=== PATIENT | female | born 1980 | race Caucasian/White ===

== ENCOUNTER → 2016-08-17 | Outpatient (REF) | payer OTHER ==
[~2016-08-17] MED LIST: /WARF5TA; ACET500T2 PO; ACET50TA PO; COUM7.5T PO; FERROUS SULFATE; HEPA500020 IP; INSURSDRX SC; LOVE0.4I2 SC; NICO21DI26 TOP; NOVOINJ5 SC; PREN27TA3 PO; VICO5TAB; VITA-113; VITAMIN C
== END ==
LOC: M LABDRWAD 19:59
PROVIDERS: ATTEND Obstetrics & Gynecology
DX: Z86.718 Personal history of other venous thrombosis and embolism (principal); O24.424 Gestational diabetes mellitus in childbirth, insulin controlled

== ENCOUNTER → 2016-09-16 | Outpatient (REF) | payer OTHER | LOC: M LAB REF 12:50 | PROVIDERS: ATTEND Obstetrics & Gynecology | DX: O24.424 Gestational diabetes mellitus in childbirth, insulin controlled (principal) ==

== ENCOUNTER → 2016-09-23 | Outpatient (CLI) | payer OTHER ==
--- NOTE | 2016-09-23 11:38 | REP ---
Clinical: Anatomical evaluation. Comparison: None . Findings: Examination demonstrates a single live intrauterine in breech presentation. motion is identified by technologist. Placenta is noted anterior fundally and grade Z without evidence for placenta previa or abruption. Amniotic fluid volume is normal. Cervix measures rectal 4.8 cm in length and appears closed. No evidence for nuchal cord. Gestational age by LMP 19 weeks 1 day with ANDREY 02/16/2017 . Gestational age by current measurements 20 weeks 2 days with ANDREY 02/08/2017 . FHR equals 141 beats per minute. BPD 4.5 cm 19 weeks 3 days HC 17.4 cm 20 weeks 0 days AC 16.4 cm 21 weeks 3 days FL 3.3 cm 20 weeks 2 days HL 3.2 cm 20 weeks 3 days HC/AC ratio 1.07 Estimated weight 374 grams (61st percentile). Anatomical assessment demonstrates normal structures including cranium, choroid plexus, cavum, cerebellum/posterior fossa, facial features, lungs, four-chamber heart/ventricular outflow tracts, diaphragm, stomach, cord insertion/three-vessel cord, bladder, and extremities. Limited evaluation of the facial profile, right cardiac ventricular outflow tract, kidneys and spine noted. Impression: Single live intrauterine in breech presentation demonstrating appropriate interval growth. Anatomical limitations as noted above may warrant reevaluation and follow-up. Signed by Scottie Raya MD 09/23/2016 11:30 A
== END ==
LOC: M RAD 09:29
PROVIDERS: ATTEND Obstetrics & Gynecology
DX: Z36 Encounter for antenatal screening of mother (principal)

== ENCOUNTER → 2016-10-06 | Outpatient (CLI) | payer OTHER ==
--- NOTE | 2016-10-06 14:42 | REP ---
OBSTETRIC SONOGRAPHY: HISTORY: Supervision of , followup anatomy. FINDINGS: Scanning through the gravid uterus demonstrates a viable single intrauterine gestation in a cephalic lie. motion is observed, and heart rate is recorded at 147 beats per minute. An anterior grade 0 placenta is seen without evidence of previa or abruption. Amniotic fluid is subjectively normal. The closed cervical length is 4.6 cm, viewed transabdominally. No extrauterine abnormality is observed. There has been appropriate interval growth. spine is still less than optimally seen due to position and maternal body habitus. The following additional anatomic structures are identified and felt to be unremarkable today: cranium, choroid plexus, cavum, face and profile, lungs, four-chamber heart with left and right ventricular outflow tract views, diaphragm, left-sided stomach, abdominal wall cord insertion, three-vessel umbilical cord, kidneys, upper and lower extremities. BIOMETRY CHART: BPD 5.2 cm = 21 week 6 days Head circumference 19.1 cm = 21 weeks 3 days Abdominal circumference 17.6 cm = 22 weeks 3 days Femur length 3.6 cm = 21 weeks 2 days Humeral length 3.5 cm = 22 weeks 1 day HC/AC ratio normal 1.09 Cephalic index normal 0.76 Estimated weight 459 grams, 1 pound 0 ounces, 47th percentile for 21 weeks 6 days. IMPRESSION: Viable single intrauterine gestation at 21 week 6 days by today's composite criteria. Expected gestational age estimate based on prior sonography is 21 week 6 days as well. ANDREY by prior sonography, February 10, 2017. spine is still less than optimally seen. Signed by Roman Perez MD 10/06/2016 04:43 P
== END ==
LOC: M RAD 12:20
PROVIDERS: ATTEND Specialist
DX: Z36 Encounter for antenatal screening of mother (principal)

== ENCOUNTER → 2016-10-27 | Outpatient (CLI) | payer OTHER ==
--- NOTE | 2016-10-27 11:38 | REP ---
OB ULTRASOUND: Real-time sonographic evaluation of the gravid uterus performed. There is a single living intrauterine gestation, estimated gestational age 24 weeks 6 days, EDC 02/10/2017. Today's measurements indicate somewhat greater than expected growth. BPD 62 mm 25 weeks 2 days, 58th percentile HC 232 mm 25 weeks 2 days, 59th percentile AC 235 mm 27 weeks 6 days, greater than 95th percentile FL 47 mm 25 weeks 5 days, 68th percentile HC/AC ratio 0.99 is below normal range of 1.02-1.21. Estimated weight 971 grams over 97th percentile. heart rate 147 beats per minute. Amniotic fluid within normal limits, amniotic fluid index (ABHAY) 19.8 within normal range of 9.7-22.1. Today the lateral ventricles, choroid plexus, stomach, kidneys, bladder and spine are visualized and are grossly unremarkable. position breech. Placenta anterior and grade 0 with no previa or abruption. Cervix is closed and measures 4.9 cm in length. IMPRESSION: Somewhat greater than expected growth, with abdominal circumference over 95th percentile and estimated weight over 97th percentile for the estimated gestational age. Followup recommended. Signed by Tao Cantrell MD 10/27/2016 03:30 P
== END ==
LOC: M RAD 10:04
PROVIDERS: ATTEND Specialist
DX: Z36 Encounter for antenatal screening of mother (principal)

== ENCOUNTER → 2016-12-18 | Outpatient (CLI) | payer OTHER ==
--- NOTE | 2016-12-18 14:30 | REP ---
OB ULTRASOUND AND BIOPHYSICAL PROFILE: Real-time sonographic evaluation of the gravid uterus is performed. There is a single living intrauterine gestation. The estimated gestational age is 32 weeks 1 day, EDC 02/11/2017. Today's measurements indicate appropriate growth. Biometry and Growth: BPD 81 mm = 32 weeks 4 days, 56th percentile HC 306 mm = 34 weeks 0 days, 79th percentile AC 301 mm = 34 weeks 0 days, 79th percentile FL 66 mm = 33 weeks 6 days, 76th percentile HC/AC ratio 1.02 within normal range. Estimated weight 2289 grams, 80th percentile. stomach and bladder are visualized and are grossly unremarkable. Cervical length: Closed and measures 4.4 cm in length heart rate: 130 beats per minute. position: Oblique with head toward the maternal right side. Placenta: Anterior and grade 0 with no previa or abruption. Amniotic fluid: Appears within normal limits, ABHAY 20.9 within the normal range of 8.6 to 24.2. Biophysical profile score is 8 out of 8. S/D ratio: 3.11 within normal range of 2.45 to 3.45. RI: 0.68 within normal range of 0.59 to 0.75. Signed by Tao Cantrell MD 12/18/2016 08:02 P
== END ==
LOC: M RAD 12:45
PROVIDERS: ATTEND Obstetrics & Gynecology
DX: O24.424 Gestational diabetes mellitus in childbirth, insulin controlled (principal); Z3A.32 32 weeks gestation of pregnancy

== ENCOUNTER 2017-01-10 06:36 | Inpatient (IN) | payer OTHER ==
[~2017-01-10] VITALS: Ht 157.5 cm; Wt 104.0 kg
[2017-01-10] VITALS (9 sets, daily range): BP systolic 105–148; BP diastolic 54–69
[2017-01-10 08:09] LABS: MEAN CORPUSCULAR HEMOGLOBIN 30.5 pg (27.0-33.0); MEAN CORPUSCULAR HGB CONC 35.4 g/dl (32.0-36.5); MEAN CORPUSCULAR VOLUME 86.2 fl (80.0-96.0); RED CELL DISTRIBUTION WIDTH 14.6 % (11.5-14.5); WHITE BLOOD COUNT 11.3 K/mm3 (4.0-10.0)
[2017-01-10 08:36] LABS: BILIRUBIN,TOTAL 0.4 MG/DL (0.2-1.0); CREATININE FOR GFR 0.38 MG/DL (0.55-1.02); GLOMERULAR FILTRATION RATE > 60.0 (>60); URIC ACID 4.8 MG/DL (2.6-6.0)
[2017-01-10 08:57] LABS: AST/SGOT 13 U/L (15-37)
[2017-01-10 08:59] LABS: ALT/SGPT 14 U/L (12-78)
[2017-01-10] MEDS ORDERED: INSURSD SC ×2 (10:30)
[2017-01-10] MEDS ORDERED: INSUNSD SC ×2 (10:30)
[2017-01-10] MEDS ORDERED: PRENTAB9 PO (10:30)
[2017-01-10] MEDS: HumaLOG INSULIN (NovoLOG) PER UNIT SC SCH ×2 (12:00→17:51)
[2017-01-10] MEDS ORDERED: LACTATED RINGER'S 1000 ML IV STA (12:11)
[2017-01-10] MEDS ORDERED: GLUCAGON FOR INJ 1 MG VIAL (J1610) SC PRN (12:15)
[2017-01-10] MEDS ORDERED: GLUCOSE 4 GM CHEW TABLET PO PRN (12:15)
[2017-01-10] MEDS ORDERED: DEXTROSE 50% 50 ML SYRINGE IV PRN (12:15)
[2017-01-10] MEDS: BETAMETHASONE SOLUSPAN 6MG/ML INJ 5ML (J0702) IM SCH (12:37)
[2017-01-11] VITALS (11 sets, daily range): BP systolic 107–149; BP diastolic 53–76
[2017-01-11] MEDS: BETAMETHASONE SOLUSPAN 6MG/ML INJ 5ML (J0702) IM SCH (00:29)
[2017-01-11 05:30] LABS: MEAN CORPUSCULAR HEMOGLOBIN 29.4 pg (27.0-33.0); MEAN CORPUSCULAR VOLUME 86.4 fl (80.0-96.0); RED CELL DISTRIBUTION WIDTH 14.6 % (11.5-14.5); WHITE BLOOD COUNT 11.5 K/mm3 (4.0-10.0)
[2017-01-11] MEDS ORDERED: BICITRA 30ML SOLN UDC PO ONE (07:15)
[2017-01-11] MEDS ORDERED: METOCLOPRAMIDE INJ 10MG/2ML VIAL (J2765) IV PRN ×2 (07:53→09:45)
[2017-01-11] MEDS ORDERED: NALOXONE INJ 0.4 MG/1 ML VIAL (J2310) IV PRN ×2 (07:53)
[2017-01-11] MEDS ORDERED: ONDANSETRON 4MG/2ML VIAL (J2405) IV PRN ×2 (07:53→09:45)
[2017-01-11] MEDS ORDERED: NALBUPHINE HCL 10 MG/ML AMP (J2300) IV PRN (07:53)
[2017-01-11] MEDS ORDERED: OXYTOCIN INJ 10 UNITS/ML VIAL (J2590) As Ordered ONE (08:23)
[2017-01-11] MEDS ORDERED: PHENYLephrine HCL 500 MCG/5 ML (100MCG/ML) SYRINGE (J2370) As Ordered ONE (08:23)
[2017-01-11] MEDS ORDERED: MORPHINE PRES-FREE INJ 10 MG/10 ML VIAL (J2274) As Ordered ONE (08:23)
[2017-01-11] MEDS ORDERED: ePHEDrine SULFATE 25 MG/5 ML(5MG/ML) SYRINGE As Ordered ONE (08:23)
[2017-01-11] MEDS ORDERED: MIDAZOLAM INJ 2 MG/2 ML VIAL (J2250) As Ordered ONE (08:28)
[2017-01-11] MEDS ORDERED: ONDANSETRON 4MG/2ML VIAL (J2405) As Ordered ONE (08:29)
[2017-01-11] MEDS ORDERED: KETOROLAC 60 MG/2 ML VIAL (J1885) As Ordered ONE (08:30)
[2017-01-11] MEDS ORDERED: PROMETHAZINE 25 MG TAB PO PRN (09:00)
[2017-01-11] MEDS ORDERED: DOCUSATE SODIUM 100 MG CAP PO PRN (09:00)
[2017-01-11] MEDS: PRENATAL VITAMIN TAB PO SCH (09:00)
[2017-01-11] MEDS: LR 1,000 ML IV SCH ×2 (09:00→17:00)
[2017-01-11] MEDS ORDERED: MOM 30ML SUSPENSION UDC PO PRN (09:00)
[2017-01-11] MEDS ORDERED: RHOGAM 300 MCG (1500 IU) INJ (J2790) IM SCH (09:00)
[2017-01-11] MEDS ORDERED: OXYTOCIN DRIP 30 UNITS in APPROPRIATE DILUENT 1 EA IV ONE (09:00)
[2017-01-11] MEDS ORDERED: MEASLES,MUMPS,RUBELLA VACCINE INJ (MMR-II) (90707) SC SCH (09:00)
[2017-01-11] MEDS ORDERED: PERCOCET PO (09:11)
[2017-01-11] MEDS ORDERED: diphenhydrAMINE INJ 50MG/ML VIAL (J1200) IV PRN (09:45)
[2017-01-11] MEDS ORDERED: PERCOCET 5MG/325MG TAB PO PRN (09:45)
[2017-01-11] MEDS ORDERED: fentaNYL 100 MCG/2 ML INJECTION (J3010) IV PRN (09:45)
[2017-01-11] MEDS ORDERED: LR 1,000 ML IV SCH (09:45)
[2017-01-11] MEDS: PERCOCET 5MG/325MG TAB PO PRN ×3 (12:40→21:12)
[2017-01-12 02:26] VITALS: BP 123/68
[2017-01-12] MEDS: PERCOCET 5MG/325MG TAB PO PRN ×5 (03:16→20:36)
[2017-01-12 06:40] VITALS: BP 121/59
[2017-01-12 07:33] LABS: MEAN CORPUSCULAR HEMOGLOBIN 29.4 pg (27.0-33.0); MEAN CORPUSCULAR HGB CONC 33.5 g/dl (32.0-36.5); RED CELL DISTRIBUTION WIDTH 15.1 % (11.5-14.5); WHITE BLOOD COUNT 14.9 K/mm3 (4.0-10.0)
[2017-01-12] MEDS: PRENATAL VITAMIN TAB PO SCH (07:50)
[2017-01-12] MEDS: ENOXAPARIN 60 MG/0.6 ML SYR (J1650) SC SCH ×2 (07:51→20:35)
[2017-01-12 10:10] VITALS: BP 121/72
[2017-01-12 14:00] VITALS: BP 133/65
[2017-01-12 18:00] VITALS: BP 121/60
[2017-01-12 22:00] VITALS: BP 128/63
[2017-01-13] MEDS: PERCOCET 5MG/325MG TAB PO PRN ×5 (00:31→21:05)
[2017-01-13 06:00] VITALS: BP 130/80
[2017-01-13] MEDS: ENOXAPARIN 60 MG/0.6 ML SYR (J1650) SC SCH ×2 (08:43→21:04)
[2017-01-13] MEDS: PRENATAL VITAMIN TAB PO SCH (08:43)
[2017-01-13 17:38] VITALS: BP 141/76
[2017-01-14] MEDS: PERCOCET 5MG/325MG TAB PO PRN ×2 (03:25→08:05)
[2017-01-14 06:10] VITALS: BP 128/60
--- NOTE | 2017-01-14 06:39 | DSES ---
DATE OF ADMISSION: 01/10/2017 DATE OF DISCHARGE: 01/14/2017 DISCHARGE DIAGNOSIS: Primary section, postoperative day 3, stable for discharge. SURGEON: Fantasma Acevedo DO [employer]IFIC[employer]ANDY MAKER: More Prescott MD HISTORY: Chey is a 36-year-old 5, para 3-2-0-3 now who underwent primary section on 01/11/2017 at 35-3/7 weeks gestation due to breech presentation and premature rupture of membranes (PPROM). She has a history of deep vein thrombosis (DVT), was on Lovenox throughout her , A2 gestational diabetes, obesity, smoking during her , advanced maternal age, history of severe preeclampsia in a prior , history of stillborn times two. Postoperatively she has done well. She has been out of bed for self care, jolynn care and infant care. She is bottle feeding. Her is in the intensive care unit. Her pain has been well controlled with p.o. pain medications and the wound VAC is appropriately placed and she is doing well. On labs preoperatively on 01/10/2017 her hemoglobin was 11.4, hematocrit 32.3, platelets 332. Postoperatively on 01/12/2017 hemoglobin of 10, hematocrit 29.9, platelets 325. Her vital signs are stable. Her temperature is 98.4, pulse 70, respirations 20, blood pressure is 128/60. She is alert and oriented times three, sitting upright, smiling and talkative. Breasts are soft, nontender. Abdomen fundus firm at two fingerbreadths below umbilicus. Her wound VAC is in place. There is no yellow green drainage. There is no redness. No edema. No warmth. Perineum is intact. Lochia rubra, scant. Bilateral lower extremities negative Homans' sign. She does desire discharge today. ASSESSMENT: Primary section postoperative day 3, stable for discharge. PLAN: Discharge the patient home today. She is to [facility] for a two week incision site check and a six week visit. She did also have a tubal ligation so there is no need for contraception at this time. Prescriptions have been E-prescribed by surgeon for Percocet 5/325 1-2 tablets p.o. q.4 h p.r.n. for pain. I did review discharge instructions that include breast care, incision care, jolynn care, pelvic rest, activity and lifting restrictions, access to care, heavy bleeding, and other danger signs in which to report. The patient does agree with the plan and desires discharge home today.
[2017-01-14 07:42] LABS: MEAN CORPUSCULAR HEMOGLOBIN 29.3 pg (27.0-33.0); MEAN CORPUSCULAR HGB CONC 33.6 g/dl (32.0-36.5); MEAN CORPUSCULAR VOLUME 87.3 fl (80.0-96.0); RED CELL DISTRIBUTION WIDTH 14.9 % (11.5-14.5)
[2017-01-14] MEDS: PRENATAL VITAMIN TAB PO SCH (08:03)
[2017-01-14] MEDS: ENOXAPARIN 60 MG/0.6 ML SYR (J1650) SC SCH (08:52)
== END 2017-01-14 09:10 | disposition home or self-care (01) | DRG 540 ==
LOC: M LDO 06:36 → M LDI 07:49 → M OBS 01-11 11:14
PROVIDERS: ADMIT Obstetrics & Gynecology; ATTEND Obstetrics & Gynecology
PROC: 0UB70ZZ Excision of Bilateral Fallopian Tubes, Open Approach (ICD-10-PCS; 2017-01-11)
PROC: 10D00Z1 Extraction of Products of Conception, Low, Open Approach (ICD-10-PCS; principal; 2017-01-11 07:30)
DX: O32.1XX0 Maternal care for breech presentation, not applicable or unspecified (principal); O60.14X0 Preterm labor third trimester with preterm delivery third trimester, not applicable or unspecified; O42.013 Preterm premature rupture of membranes, onset of labor within 24 hours of rupture, third trimester; E66.9 Obesity, unspecified; O99.214 Obesity complicating childbirth; Z37.0 Single live birth; Z3A.35 35 weeks gestation of pregnancy; F17.200 Nicotine dependence, unspecified, uncomplicated; O99.334 Smoking (tobacco) complicating childbirth; Z30.2 Encounter for sterilization; Z86.711 Personal history of pulmonary embolism; Z79.01 Long term (current) use of anticoagulants

== ENCOUNTER 2017-08-13 06:09 | Day surgery (SDC) | payer OTHER ==
[2017-08-13] MEDS: LR 1,000 ML IV (06:57)
[2017-08-13] MEDS ORDERED: GLYCOPYRROLATE INJ 0.2 MG/ML 2 ML VIAL As Ordered (07:10)
[2017-08-13] MEDS ORDERED: ONDANSETRON 4MG/2ML VIAL (J2405) As Ordered (07:10)
[2017-08-13] MEDS ORDERED: ROCURONIUM BROMIDE 50 MG/5 ML VIAL As Ordered (07:10)
[2017-08-13] MEDS ORDERED: PROPOFOL 200 MG/20 ML VIAL As Ordered (07:10)
[2017-08-13] MEDS ORDERED: LIDOCAINE 2% INJ 100 MG/5 ML SDV (FOR ANES.) As Ordered (07:10)
[2017-08-13] MEDS ORDERED: NEOSTIGMINE 10 MG/10 ML VIAL (J2710) As Ordered (07:10)
[2017-08-13] MEDS ORDERED: dexameTHASONE 4 MG/ML 1ML VIAL (J1100) As Ordered (07:10)
[2017-08-13] MEDS ORDERED: fentaNYL 100 MCG/2 ML INJECTION (J3010) As Ordered (07:11)
[2017-08-13] MEDS ORDERED: MIDAZOLAM INJ 2 MG/2 ML VIAL (J2250) As Ordered (07:11)
[2017-08-13] MEDS: LIDOCAINE W/EPINEPHRINE 1% 20ML VIAL As Ordered (07:54)
[2017-08-13] MEDS: PERCOCET 5MG/325MG TAB PO (08:50)
[2017-08-13] MEDS ORDERED: PERCOCET 5MG/325MG TAB As Ordered (08:50)
[2017-08-13] MEDS ORDERED: ONDANSETRON 4MG/2ML VIAL (J2405) IV (09:30)
[2017-08-13] MEDS ORDERED: LR 1,000 ML IV (09:30)
[2017-08-13] MEDS ORDERED: fentaNYL 100 MCG/2 ML INJECTION (J3010) IV (09:30)
[2017-08-13] MEDS ORDERED: NORCO, ANEXSIA 5/325MG TABLET (HYDROcodone/ACETAMINOPHEN) PO (09:30)
[2017-08-13] MEDS ORDERED: MEPERIDINE INJ 25 MG/ML VIAL (J2175) IV (09:30)
== END 2017-08-13 10:00 | disposition home or self-care (01) ==
LOC: M SDC 06:09
DX: K42.0 Umbilical hernia with obstruction, without gangrene (principal); F17.210 Nicotine dependence, cigarettes, uncomplicated; Z79.82 Long term (current) use of aspirin; Z79.899 Other long term (current) drug therapy; Z86.711 Personal history of pulmonary embolism
CPT/HCPCS: 49653

== ENCOUNTER → 2019-02-10 | Outpatient (CLI) | payer OTHER ==
[~2019-02-10] MED LIST changes: -/WARF5TA; -ACET50TA PO; +ASPI81TA26 PO; +COUM1TAB17; +FISH1000 PO; +INSUNSD SC; +INSURSD SC; +MAPA500T2 PO; +PERCOCET PO; +PRENTAB9 PO
--- NOTE | 2019-02-10 15:18 | REP ---
Clinical: Abdominal pain and distension. Technique: Upright view of the chest with supine and upright views of the abdomen and pelvis. Findings: Frontal upright view of the chest demonstrates no acute cardiopulmonary process or free air below the diaphragm to suspect pneumoperitoneum. Scarring in the right mid lung zone remains stable compared to 2013. Supine and upright views of the abdomen and pelvis demonstrate nonspecific bowel gas pattern without obstruction or perforation. No organomegaly. No abnormal calcifications. Skeletal structures normal for age. Impression: Nonspecific bowel gas pattern. Electronically Signed by Scottie Raya MD 02/10/2019 03:09 P
== END ==
LOC: M ADAMS 14:30
PROVIDERS: ATTEND Physician Assistant Medical
DX: R14.0 Abdominal distension (gaseous) (principal)

== ENCOUNTER → 2019-03-16 | Outpatient (REF) | payer OTHER ==
[2019-03-16 12:05] LABS: BASO # 0.1 10^3/uL (0.0-0.2); BASO % 0.6 % (0.0-1.0); EOS # 0.3 10^3/uL (0.0-0.50); EOS % 2.4 % (0.0-3.0); HEMATOCRIT 46.2 % (36.0-47.0); HEMOGLOBIN 15.2 g/dl (12.0-15.5); LYMPH # 2.8 10^3/uL (1.5-4.5); LYMPH % 25.9 % (24.0-44.0); MEAN CORPUSCULAR HEMOGLOBIN 29.2 pg (27.0-33.0); MEAN CORPUSCULAR HGB CONC 32.9 g/dl (32.0-36.5); MEAN CORPUSCULAR VOLUME 88.8 fl (80.0-96.0); MONO # 0.9 10^3/uL (0.0-0.8); NEUTROPHILS # 6.7 10^3/uL (1.8-7.7); NEUTROPHILS % 62.8 % (36.0-66.0); PLATELET COUNT, AUTOMATED 349 10^3/uL (150-450); WHITE BLOOD COUNT 10.7 10^3/uL (4.0-10.0)
[2019-03-16 12:28] LABS: HEMOGLOBIN A1c 6.2 %
[2019-03-16 12:41] LABS: ALBUMIN 3.5 GM/DL (3.2-5.2); ALT/SGPT 31 U/L (12-78); BILIRUBIN,TOTAL 0.3 MG/DL (0.2-1.0); BLOOD UREA NITROGEN 6 MG/DL (7-18); CALCIUM LEVEL 8.9 MG/DL (8.5-10.1); CARBON DIOXIDE LEVEL 26 MEQ/L (21-32); CHLORIDE LEVEL 108 MEQ/L (98-107); CHOLESTEROL LEVEL 199 MG/DL (<200); CHOLESTEROL RISK RATIO 6.862 (<5); CREATININE FOR GFR 0.64 MG/DL (0.55-1.30); GLOMERULAR FILTRATION RATE > 60.0 (>60); GLUCOSE, FASTING 79 MG/DL (70-100); HDL CHOLESTEROL 29 MG/DL (>40); NON-HDL-C 170 MG/DL; POTASSIUM SERUM 4.4 MEQ/L (3.5-5.1); SODIUM LEVEL 140 MEQ/L (136-145); TOTAL PROTEIN 6.8 GM/DL (6.4-8.2); TRIGLYCERIDES LEVEL 443 MG/DL (<150)
== END ==
LOC: M SFHCADAM 09:14
PROVIDERS: ATTEND Physician Assistant Medical
DX: R14.0 Abdominal distension (gaseous) (principal); R73.01 Impaired fasting glucose; E66.01 Morbid (severe) obesity due to excess calories; Z86.711 Personal history of pulmonary embolism

== ENCOUNTER → 2021-04-09 | Outpatient (REF) | payer OTHER | LOC: M SFHCWAGY 18:53 | PROVIDERS: ATTEND Obstetrics & Gynecology | DX: Z12.4 Encounter for screening for malignant neoplasm of cervix (principal); N89.8 Other specified noninflammatory disorders of vagina ==

== ENCOUNTER 2022-04-29 09:07 | Emergency (ER) | payer OTHER ==
[~2022-04-29] VITALS: Ht 157.5 cm; Wt 91.6 kg
[2022-04-29 09:08] VITALS: BP 127/65
[2022-04-29 10:58] LABS: BASO # 0.1 10^3/uL (0.0-0.2); BASO % 0.6 % (0.0-1.0); EOS # 0.2 10^3/uL (0.0-0.5); EOS % 2.4 % (0.0-3.0); HEMATOCRIT 32.6 % (36.0-47.0); HEMOGLOBIN 8.9 g/dl (12.0-15.5); LYMPH # 1.6 10^3/uL (1.5-5.0); LYMPH % 17.5 % (24.0-44.0); MEAN CORPUSCULAR HEMOGLOBIN 18.4 pg (27.0-33.0); MEAN CORPUSCULAR HGB CONC 27.3 g/dl (32.0-36.5); MEAN CORPUSCULAR VOLUME 67.2 fl (80.0-96.0); MONO % 10.5 % (2.0-8.0); NEUTROPHILS # 6.4 10^3/uL (1.5-8.5); NEUTROPHILS % 68.6 % (36.0-66.0); PLATELET COUNT, AUTOMATED 342 10^3/uL (150-450); RED BLOOD COUNT 4.85 10^6/uL (4.00-5.40); WHITE BLOOD COUNT 9.3 10^3/uL (4.0-10.0)
[2022-04-29 11:09] LABS: INR 0.97; PROTHROMBIN TIME 13.3 SECONDS (12.7-14.5)
[2022-04-29 11:10] LABS: PARTIAL THROMBOPLASTIN TIME 28.1 SECONDS (25.9-37.0)
[2022-04-29] MEDS ORDERED: ISOVUE-370 76% 100ML VIAL As Ordered ONE (11:16)
[2022-04-29 11:36] LABS: ALBUMIN 3.5 GM/DL (3.2-5.2); BILIRUBIN,DIRECT 0.2 MG/DL (0.0-0.2); BILIRUBIN,TOTAL 0.4 MG/DL (0.2-1.0); TOTAL PROTEIN 7.2 GM/DL (6.4-8.2)
[2022-04-29 13:22] LABS: PERCENT SATURATION 4.5 % (13.2-45.0)
[2022-04-29] MEDS ORDERED: IRON65TA2 PO (14:06)
[2022-04-29] MEDS ORDERED: ELIQ5TAB PO (14:06)
[2022-05-01 07:07] LABS: FOLATE 8.5 ng/mL (>3.0)
== END 2022-04-29 14:32 | disposition home or self-care (01) ==
LOC: M ED 09:07
DX: I26.93 Single subsegmental thrombotic pulmonary embolism without acute cor pulmonale (principal); D64.9 Anemia, unspecified; E78.5 Hyperlipidemia, unspecified; K21.9 Gastro-esophageal reflux disease without esophagitis; F17.200 Nicotine dependence, unspecified, uncomplicated; Z79.82 Long term (current) use of aspirin
CPT/HCPCS: 36415; 71101; 71275; 80047; 80076; 82607; 82728; 82746; 83550; 84702; 85025; 85046; 85610; 85730; 99284; Q9967

== ENCOUNTER 2022-09-07 08:56 | Emergency (ER) | payer OTHER ==
[~2022-09-07] VITALS: Ht 157.5 cm; Wt 91.2 kg
[~2022-09-07 08:56] MED LIST changes: +ELIQ5TAB PO; +IRON65TA2 PO
[2022-09-07 09:30] VITALS: BP 151/72
== END 2022-09-07 11:40 | disposition home or self-care (01) ==
LOC: M ED 08:56
DX: G56.21 Lesion of ulnar nerve, right upper limb (principal); F17.200 Nicotine dependence, unspecified, uncomplicated; Z79.01 Long term (current) use of anticoagulants

== ENCOUNTER 2022-10-26 11:42 | Emergency (ER) | payer OTHER ==
[~2022-10-26] VITALS: Ht 157.5 cm; Wt 90.9 kg
[2022-10-26 12:52] LABS: BASO % 0.4 % (0.0-1.0); EOS # 0.2 10^3/uL (0.0-0.5); EOS % 2.1 % (0.0-3.0); HEMATOCRIT 40.2 % (36.0-47.0); HEMOGLOBIN 12.5 g/dl (12.0-15.5); LYMPH % 21.7 % (24.0-44.0); MEAN CORPUSCULAR HEMOGLOBIN 25.8 pg (27.0-33.0); MEAN CORPUSCULAR HGB CONC 31.1 g/dl (32.0-36.5); MEAN CORPUSCULAR VOLUME 82.9 fl (80.0-96.0); MONO # 0.7 10^3/uL (0.0-0.8); MONO % 7.2 % (2.0-8.0); NEUTROPHILS # 6.3 10^3/uL (1.5-8.5); NEUTROPHILS % 68.3 % (36.0-66.0); PLATELET COUNT, AUTOMATED 376 10^3/uL (150-450); RED BLOOD COUNT 4.85 10^6/uL (4.00-5.40); WHITE BLOOD COUNT 9.2 10^3/uL (4.0-10.0)
[2022-10-26 13:17] LABS: BLOOD UREA NITROGEN 10 MG/DL (9-23); CALCIUM LEVEL 8.6 MG/DL (8.5-10.1); CARBON DIOXIDE LEVEL 28 MMOL/L (20-31); CHLORIDE LEVEL 107 MMOL/L (98-107); CK-MB VALUE MASS < 1.0 NG/ML (<3.6); CPK CREATINE PHOSPHOKINASE 67 U/L (34-145); CREATININE FOR GFR 0.61 MG/DL (0.55-1.30); GLOMERULAR FILTRATION RATE > 60.0 (>58); GLUCOSE, FASTING 88 MG/DL (60-100); MAGNESIUM LEVEL 1.8 MG/DL (1.8-2.4); MB/CK RELATIVE INDEX 1.49 (< OR =4); POTASSIUM SERUM 4.3 MMOL/L (3.5-5.1); SODIUM LEVEL 139 MMOL/L (136-145)
[2022-10-26 13:20] LABS: THYROID STIMULATING HORMONE 1.529 uIU/ML (0.55-4.78)
[2022-10-26 13:21] LABS: INR 0.89; PROTHROMBIN TIME 12.2 SECONDS (12.5-14.5)
[2022-10-26 13:22] LABS: PARTIAL THROMBOPLASTIN TIME 23.3 SECONDS (24.8-34.2)
[2022-10-26] MEDS ORDERED: MECL1TAB31 PO (13:45)
[2022-10-26 13:57] VITALS: BP 162/72
== END 2022-10-26 13:58 | disposition home or self-care (01) ==
LOC: EDBD 11:42 → M ED 11:42
DX: H81.399 Other peripheral vertigo, unspecified ear (principal); S40.022A Contusion of left upper arm, initial encounter; X58.XXXA Exposure to other specified factors, initial encounter; Y92.89 Other specified places as the place of occurrence of the external cause; Y93.89 Activity, other specified; Y99.8 Other external cause status; F17.200 Nicotine dependence, unspecified, uncomplicated

== ENCOUNTER 2022-10-29 10:26 | Inpatient (IN) | payer OTHER ==
[~2022-10-29] VITALS: Ht 157.5 cm; Wt 89.5 kg
[~2022-10-29 10:26] MED LIST changes: -FERR325T3 PO; -LOVE0.8I SC
[2022-10-29 12:10] VITALS: BP 128/67
[2022-10-29] MEDS ORDERED: ELIQ5TAB PO (13:02)
[2022-10-29] MEDS ORDERED: FERR325T3 PO (13:02)
[2022-10-29] MEDS ORDERED: HOME MED LIST COMPLETE! XX SCH (13:05)
[2022-10-29 13:15] LABS: HEMATOCRIT 44.5 % (36.0-47.0); HEMOGLOBIN 13.6 g/dl (12.0-15.5); MEAN CORPUSCULAR HEMOGLOBIN 25.8 pg (27.0-33.0); MEAN CORPUSCULAR HGB CONC 30.6 g/dl (32.0-36.5); MEAN CORPUSCULAR VOLUME 84.3 fl (80.0-96.0); PLATELET COUNT, AUTOMATED 432 10^3/uL (150-450); RED BLOOD COUNT 5.28 10^6/uL (4.00-5.40); WHITE BLOOD COUNT 10.1 10^3/uL (4.0-10.0)
[2022-10-29 13:21] LABS: ALBUMIN 3.9 G/DL (3.2-5.2); ALKALINE PHOSPHATASE 129 U/L (46-116); ALT/SGPT 30 U/L (7.0-40); AST/SGOT 21 U/L (<34); BILIRUBIN,TOTAL 0.6 MG/DL (0.3-1.2); BLOOD UREA NITROGEN 14 MG/DL (9-23); CALCIUM LEVEL 9.8 MG/DL (8.5-10.1); CARBON DIOXIDE LEVEL 28 MMOL/L (20-31); CHLORIDE LEVEL 106 MMOL/L (98-107); CREATININE FOR GFR 0.59 MG/DL (0.55-1.30); GLOMERULAR FILTRATION RATE > 60.0 (>58); GLUCOSE, FASTING 107 MG/DL (60-100); POTASSIUM SERUM 4.1 MMOL/L (3.5-5.1); SODIUM LEVEL 139 MMOL/L (136-145); TOTAL PROTEIN 7.4 G/DL (5.7-8.2)
[2022-10-29 15:56] VITALS: BP 136/63
[2022-10-29 16:00] VITALS: BP 131/68
[2022-10-29] MEDS: FERROUS SULFATE 325MG TAB PO SCH (21:02)
[2022-10-29] MEDS: APIXABAN 5 MG TAB (ELIQUIS) PO SCH (21:02)
[2022-10-29 21:07] VITALS: BP 118/55
[2022-10-30 00:34] VITALS: BP 107/52
[2022-10-30 04:00] VITALS: BP 121/58
[2022-10-30 05:51] LABS: HEMATOCRIT 39.9 % (36.0-47.0); HEMOGLOBIN 12.3 g/dl (12.0-15.5); MEAN CORPUSCULAR HEMOGLOBIN 25.8 pg (27.0-33.0); MEAN CORPUSCULAR HGB CONC 30.8 g/dl (32.0-36.5); MEAN CORPUSCULAR VOLUME 83.6 fl (80.0-96.0); PLATELET COUNT, AUTOMATED 387 10^3/uL (150-450); RED BLOOD COUNT 4.77 10^6/uL (4.00-5.40); WHITE BLOOD COUNT 8.7 10^3/uL (4.0-10.0)
[2022-10-30 06:26] LABS: ALBUMIN 3.2 G/DL (3.2-5.2); ALKALINE PHOSPHATASE 101 U/L (46-116); ALT/SGPT 29 U/L (7.0-40); AST/SGOT 24 U/L (<34); BILIRUBIN,TOTAL 0.5 MG/DL (0.3-1.2); BLOOD UREA NITROGEN 13 MG/DL (9-23); CALCIUM LEVEL 8.9 MG/DL (8.5-10.1); CARBON DIOXIDE LEVEL 23 MMOL/L (20-31); CHLORIDE LEVEL 109 MMOL/L (98-107); CREATININE FOR GFR 0.46 MG/DL (0.55-1.30); GLOMERULAR FILTRATION RATE > 60.0 (>58); GLUCOSE, FASTING 92 MG/DL (60-100); POTASSIUM SERUM 4.3 MMOL/L (3.5-5.1); SODIUM LEVEL 139 MMOL/L (136-145); TOTAL PROTEIN 6.1 G/DL (5.7-8.2)
[2022-10-30 07:41] VITALS: BP 126/60
[2022-10-30] MEDS ORDERED: INFLUENZA QUADRIVALENT PF VACCINE 0.5ML SYRINGE IM.IMMUN ONE (09:00)
[2022-10-30] MEDS: APIXABAN 5 MG TAB (ELIQUIS) PO SCH (09:22)
[2022-10-30] MEDS: FERROUS SULFATE 325MG TAB PO SCH (09:22)
[2022-10-30 11:33] VITALS: BP 138/60
[2022-10-30] MEDS ORDERED: PROHANCE 279.3MG/ML 15ML VIAL As Ordered ONE ×2 (14:17→14:25)
[2022-10-30] MEDS ORDERED: PROHANCE 279.3MG/ML 5ML VIAL As Ordered ONE (14:17)
[2022-10-30 15:48] VITALS: BP 136/63
[2022-10-30] MEDS ORDERED: LOVE0.8I SC (16:50)
[2022-10-30] MEDS ORDERED: ENOXAPARIN 100MG/1ML SYRINGE (J1650 PER 10MG) SC SCH (21:00)
[2022-11-02 21:07] LABS: ANTINUCLEAR ANTIBODIES DIRECT Negative (Negative)
== END 2022-10-30 17:42 | disposition left against medical advice (07) | DRG 45 ==
LOC: M PCU 11:52
PROVIDERS: ADMIT Internal Medicine; ATTEND Internal Medicine
PROC: B246ZZZ Ultrasonography of Right and Left Heart (ICD-10-PCS; principal; 2022-10-29)
DX: I63.9 Cerebral infarction, unspecified (principal); E66.01 Morbid (severe) obesity due to excess calories; Z86.711 Personal history of pulmonary embolism; E78.5 Hyperlipidemia, unspecified; R73.03 Prediabetes; F17.210 Nicotine dependence, cigarettes, uncomplicated; Z83.3 Family history of diabetes mellitus; Z79.01 Long term (current) use of anticoagulants; Z79.899 Other long term (current) drug therapy

== ENCOUNTER → 2022-10-29 | Outpatient (CLI) | payer OTHER ==
[~2022-10-29] MED LIST changes: +FERR325T3 PO; +LOVE0.8I SC; +MECL1TAB31 PO
== END ==
LOC: M PLAIMG 06:48
PROVIDERS: ATTEND Physician Assistant Medical
DX: I63.89 Other cerebral infarction (principal); R42 Dizziness and giddiness; F17.200 Nicotine dependence, unspecified, uncomplicated